=== PATIENT | male | born 1945 | race Asian ===

== ENCOUNTER 2016-12-30 18:10 | Emergency (ER) | payer MEDICARE, BC ==
[~2016-12-30] VITALS: Ht 172.7 cm; Wt 83.5 kg
[2016-12-30 18:20] VITALS: BP 150/82
--- NOTE | 2016-12-30 18:40 | Emergency Room Report ---
History of Present Illness General Chief Complaint: Headache Source: Patient Present Illness HPI 71-year-old male history of hypertension hyperlipidemia and diabetes presenting with headache for 2 days. Patient states that he has had a left-sided headache , sharp, throbbing, constant throughout the day with intermittent exacerbations. Patient states that pain occurred gradually. Patient states that he has also been having subjective fever and chills, has been taking Tylenol with some relief. Patient denies any blurry vision, nausea, vomiting, lateral or posterior neck pain, motor or sensory weakness of any extremity. Patient states that he normally gets headaches, and it is usually in the left lateral region, but states that this pain now is more severe than his usual headaches. Has not seen a neurologist Allergies: Coded Allergies: No Known Allergies (Unverified , 12/30/16) Patient History Past Medical History: see triage record Past Surgical History: none Pertinent Family History: none Reviewed Nursing Documentation: PMH: Agreed, PSxH: Agreed Nursing Documentation-PMH Past Medical History: No History, Except For Hx Hypertension: Yes Hx Diabetes: Yes Review of Systems All Other Systems: negative except mentioned in HPI Physical Exam Vital Signs Date Time Temp Pulse Resp B/P (MAP) Pulse Ox O2 Delivery O2 Flow Rate FiO2 12/30/16 18:14 98.2 101 20 162/80 97 Room Air Sp02 EP Interpretation: reviewed, normal General Appearance: normal inspection, well appearing, no apparent distress, alert, GCS 15, non-toxic, other - Well appearing middle aged male, conversing appropriately, does not appear to be in pain, not in any distress Head: normocephalic, atraumatic Eyes: bilateral eye normal inspection, bilateral eye PERRL, bilateral eye EOMI ENT: normal ENT inspection, normal pharynx, normal voice, moist mucus membranes Neck: normal inspection, full range of motion, supple, no meningismus, no bony tend, other - Full range of motion, no nuchal rigidity Respiratory: normal inspection, lungs clear, normal breath sounds, no respiratory distress, no retraction, no wheezing, speaking full sentences, chest symmetrical Cardiovascular #1: normal inspection, regular rate, rhythm, no edema, normal capillary refill Cardiovascular #2: 2+ radial (R), 2+ radial (L) Gastrointestinal: normal inspection, non tender, soft, non-distended, no guarding Genitourinary: no CVA tenderness Musculoskeletal: normal inspection, back normal, normal range of motion, non- tender Neurologic: normal inspection, alert, oriented x3, responsive, home comfort advisor III-XII nml as tested, motor strength/tone normal, sensory intact, normal gait, speech normal Psychiatric: normal inspection, judgement/insight normal, memory normal Skin: normal inspection, normal color, no rash, warm/dry, well hydrated, normal turgor Medical Decision Making Diagnostic Impression: Primary Impression: Headache ER Course 71-year-old male presenting with headache for 2 days DDX: Migraine versus tension headache versus dehydration versus intracranial bleed Other serious diagnoses on differential such as meningitis/encephalitis, tumor, however patients H&P is more consistent with benign etiology at this time. There are no neurological signs/symptoms/findings on physical exam and patient appears nontoxic. Plan: Patient offered pain medication but states that he has no pain at this time ER course: Patient continues to appear nontoxic, aox3, no neurologic symptoms. no nuchal rigidity. NO WOOD, did not receive pain meds in ED as no pain CT head negative Reexamined patient: no neurolgoical findings states he has had some slight intermittent L sided spasm headaches, however no neck pain. no n/v abd pain lactate elevated - takes metformin given IVF, repeat 1.1 I am not concerned with meningitis as patient very well appearing and asymptomatic Pt sitting up in bed, texting/talkign on phone, not in any distress. Repeat HR has been in the 80s Disposition: Patient instructed to follow up with primary care doctor within 5 days. Patient also instructed to follow up with a neurologist within 1 week. Strict return precautions discussed with patient such as severe/worsening headache, nausea, vomiting, fever chills, neck pain. Patient verbalized understanding. Please note that this Emergency Department Report was dictated using [employer] inspector technology software, occasionally this can lead to erroneous entry secondary to interpretation by the dictation equipment. Laboratory Tests Test 12/30/16 19:00 12/30/16 19:10 White Blood Count 11.7 K/UL (4.8-10.8) H Red Blood Count 5.29 M/UL (4.70-6.10) Hemoglobin 16.6 G/DL (14.2-18.0) Hematocrit 48.3 % (42.0-52.0) Mean Corpuscular Volume 91 FL (80-99) Mean Corpuscular Hemoglobin 31.4 PG (27.0-31.0) H Mean Corpuscular Hemoglobin Concent 34.4 G/DL (32.0-36.0) Red Cell Distribution Width 11.9 % (11.6-14.8) Platelet Count 165 K/UL (150-450) Mean Platelet Volume 7.0 FL (6.5-10.1) Neutrophils (%) (Auto) 79.0 % (45.0-75.0) H Lymphocytes (%) (Auto) 11.4 % (20.0-45.0) L Monocytes (%) (Auto) 8.5 % (1.0-10.0) Eosinophils (%) (Auto) 0.5 % (0.0-3.0) Basophils (%) (Auto) 0.7 % (0.0-2.0) Sodium Level 137 mEQ/L (135-145) Potassium Level 4.0 mEQ/L (3.4-4.9) Chloride Level 96 mEQ/L (98-107) L Carbon Dioxide Level 27 mEQ/L (20-30) Anion Gap 14 (5-15) Blood Urea Nitrogen 19 mg/dL (7-23) Creatinine 1.4 mg/dL (0.7-1.2) H Estimate Glomerular Filtration Rate 50.2 mL/min (>60) Glucose Level 184 mg/dL (74-106) H Lactic Acid Level 2.70 mmol/L (0.66-2.22) H Calcium Level 9.5 mg/dL (8.6-10.2) Total Bilirubin 0.4 mg/dL (0.0-1.2) Aspartate Amino Transferase (AST) 24 U/L (5-40) Alanine Aminotransferase (ALT) 22 U/L (3-41) Alkaline Phosphatase 34 U/L (40-129) L Total Protein 8.0 g/dL (6.6-8.7) Albumin 4.2 g/dL (3.5-5.2) Globulin 3.8 g/dL Albumin/Globulin Ratio 1.1 (1.0-2.7) Urine Color Yellow Urine Appearance Clear Urine pH 6 (4.5-8.0) Urine Specific [place] 1.010 (1.005-1.035) Urine Protein 3+ (NEGATIVE) H Urine Glucose (UA) 4+ (NEGATIVE) H Urine Ketones Negative (NEGATIVE) Urine Occult Blood 1+ (NEGATIVE) H Urine Nitrite Negative (NEGATIVE) Urine Bilirubin Negative (NEGATIVE) Urine Urobilinogen Normal MG/DL (0.0-1.0) Urine Leukocyte Esterase Negative (NEGATIVE) Urine RBC 0-2 /HPF (0 - 0) H Urine WBC 0-2 /HPF (0 - 0) Urine Squamous Epithelial Cells None /LPF (NONE/OCC) Urine Bacteria None /HPF (NONE) EKG Diagnostic Results Rate: normal Rhythm: NSR ST Segments: other - Q waves inf leads, +PVCs ASA given to the pt in ED: No Rhythm Strip Diag. Results EP Interpretation: yes Rate: 96 Rhythm: NSR, no PVC's, no ectopy Chest X-Ray Diagnostic Results Chest X-Ray Diagnostic Results : Chest X-Ray Ordered: Yes # of Views/Limited/Complete: 1 View EP Interpretation: Yes Interpretation: no consolidation, no effusion, no pneumothorax, no acute cardiopulmonary disease Impression: No acute disease Electronically Signed by: Electronically signed by Marisabel Gómez MD CT/MRI/US Diagnostic Results CT/MRI/US Diagnostic Results : Imaging Test Ordered: CT head Impression No acute intracranial process Partial ethmoid opacification Electronically signed by Marisabel Gómez MD Last Vital Signs Date Time Temp Pulse Resp B/P (MAP) Pulse Ox O2 Delivery O2 Flow Rate FiO2 12/30/16 18:14 98.2 101 20 162/80 97 Room Air Disposition: HOME, SELF-CARE Condition: Improved Patient Instructions: General Headache Without Cause Marisabel Gómez M.D. Dec 30, 2016 18:40
[2016-12-30 19:17] LABS: BASOPHILS % (AUTO) 0.7 % (0.0-2.0); EOSINOPHILS % (AUTO) 0.5 % (0.0-3.0); LYMPHOCYTES % (AUTO) 11.4 % (20.0-45.0); MEAN CORPUSCULAR HEMOGLOBIN 31.4 PG (27.0-31.0); MEAN CORPUSCULAR HGB CONC 34.4 G/DL (32.0-36.0); MEAN CORPUSCULAR VOLUME 91 FL (80-99); MONOCYTES % (AUTO) 8.5 % (1.0-10.0); PLATELET COUNT 165 K/UL (150-450); RED BLOOD COUNT 5.29 M/UL (4.70-6.10); RED CELL DISTRIBUTION WIDTH 11.9 % (11.6-14.8); WHITE BLOOD COUNT 11.7 K/UL (4.8-10.8)
[2016-12-30 19:27] LABS: APPEARANCE,URINE CLEAR; KETONES,URINE NEGATIVE (NEGATIVE); LEUKOCYTE ESTERASE ,URINE NEGATIVE (NEGATIVE); NITRITE,URINE NEGATIVE (NEGATIVE); PH,URINE 6 (4.5-8.0); PROTEIN,URINE 3+ (NEGATIVE); UROBILINOGEN,URINE NORMAL MG/DL (0.0-1.0)
[2016-12-30 19:35] LABS: RBC,URINE 0-2 /HPF (0 - 0); WBC,URINE 0-2 /HPF (0 - 0)
[2016-12-30 19:36] LABS: ALBUMIN/GLOBULIN RATIO 1.1 (1.0-2.7); CALCIUM 9.5 mg/dL (8.6-10.2); CREATININE 1.4 mg/dL (0.7-1.2); GLOMERULAR FILTRATION RATE 50.2 mL/min (>60)
[2016-12-30 19:38] LABS: REFLEX LACTIC ACID YES OR NO YES
[2016-12-30 19:40] VITALS: BP 145/79
[2016-12-30 21:30] VITALS: BP 138/79
[2016-12-30 21:40] VITALS: BP 138/79
[2016-12-30] MEDS ORDERED: RAMIPRIL5 MG ORAL (22:21)
[2016-12-30] MEDS ORDERED: NIACIN750 MG ORAL (22:21)
[2016-12-30] MEDS ORDERED: HYDROCHLOROTHIA25 MG ORAL (22:21)
[2016-12-30] MEDS ORDERED: TRULICITY0.75 MG/0. SQ (22:21)
[2016-12-30] MEDS ORDERED: BYSTOLIC2.5 MG ORAL (22:21)
[2016-12-30] MEDS ORDERED: FENOFIBRIC ACI105 MG PO (22:21)
[2016-12-30] MEDS ORDERED: METFORMIN HCL1000 M1 ORAL (22:21)
[2016-12-30] MEDS ORDERED: ZANTAC150 MG ORAL (22:21)
[2016-12-30] MEDS ORDERED: LIVALO4 MG PO (22:21)
--- NOTE | 2016-12-31 08:25 | Diagnostic Imaging Report ---
Indication: PAIN headaches Technique: spiral acquisitions obtained through the brain. Angled axial and coronal 5 x 5 mm slices were reconstructed. No IV contrast utilized. Radiation dose was minimized using automated exposure control Total dose length product 1499 mGycm. CTDIvol(s) 70 mGy Comparison: none FINDINGS: No acute hemorrhage or edema. No mass effect or midline shift. There is age-related enlargement of the ventricles and extra axial CSF spaces. There is periventricular deep white matter ischemic change. Normal youssef-white differentiation. Visualized orbits are unremarkable. There is ethmoid sinus disease. Intact calvarium. IMPRESSION: Chronic and age-related changes. Negative for acute intracranial bleed or mass effect Ethmoid sinus disease This agrees with the preliminary interpretation provided overnight by [facility]. The CT scanner at [facility] is accredited by the [employer] and the scans are performed using protocols designed to limit radiation exposure to as low as reasonably achievable to attain images of sufficient resolution adequate for diagnostic evaluation
--- NOTE | 2016-12-31 10:31 | Diagnostic Imaging Report ---
Indication: PAIN Technique: One view of the chest Comparison: none Findings: Lungs and pleural spaces are clear. Heart size is normal . The aorta is tortuous Impression: No acute process This agrees with the preliminary interpretation provided by the emergency room physician
--- NOTE | 2017-01-02 15:57 | Cardiology Report ---
APPROVED REPORT EKG Measurement Heart [id number] Sinus rhythm with occasional premature ventricular complexes Left posterior fascicular block Abnormal ECG
== END 2016-12-30 21:40 | disposition home or self-care (01) ==
LOC: EMR 18:42
DX: R51 Headache (principal); I10 Essential (primary) hypertension; E11.9 Type 2 diabetes mellitus without complications; J32.2 Chronic ethmoidal sinusitis
CPT/HCPCS: 36415; 70450; 71010; 80053; 81003; 83605; 85025; 87040; 93005; 96360; 99284

== ENCOUNTER 2017-10-08 17:19 | Inpatient (IN) | payer MEDICARE, BC ==
[~2017-10-08] VITALS: Ht 172.7 cm; Wt 67.6 kg
[~2017-10-08 17:19] MED LIST: BYSTOLIC2.5 MG ORAL; FENOFIBRIC ACI105 MG PO; HYDROCHLOROTHIA25 MG ORAL; LIVALO4 MG PO; METFORMIN HCL1000 M1 ORAL; NIACIN750 MG ORAL; RAMIPRIL5 MG ORAL; TRULICITY0.75 MG/0. SQ; ZANTAC150 MG ORAL
[2017-10-08] MEDS ORDERED: LIVALO4 MG PO (17:35)
[2017-10-08] MEDS ORDERED: jardiance PO (17:35)
--- NOTE | 2017-10-08 17:51 | Emergency Room Report ---
History of Present Illness General Chief Complaint: Abdominal Pain Source: Patient Present Illness HPI Patient present with complaints of epigastric discomfort and sensation of bloating in the abdominal area patient reports that this feeling started this afternoon after eating lunch Denies any vomiting did have some nausea however Denies any lower abdominal pain denies any diarrhea denies any chest pain or short of breath Denies any back or flank pain denies any dysuria frequency Allergies: Coded Allergies: No Known Allergies (Unverified , 12/30/16) Patient History Past Medical History: see triage record Pertinent Family History: none Reviewed Nursing Documentation: PMH: Agreed; PSxH: Agreed Nursing Documentation-PMH Hx Hypertension: Yes Hx Diabetes: Yes Review of Systems All Other Systems: negative except mentioned in HPI Physical Exam Vital Signs Date Time Temp Pulse Resp B/P (MAP) Pulse Ox O2 Delivery O2 Flow Rate FiO2 10/08/17 17:28 97.6 90 18 156/86 96 Room Air 97.5 Sp02 EP Interpretation: reviewed, normal General Appearance: no apparent distress Head: normocephalic, atraumatic Eyes: bilateral eye PERRL, bilateral eye EOMI ENT: normal pharynx, no angioedema Neck: full range of motion, supple Respiratory: lungs clear, normal breath sounds Cardiovascular #1: regular rate, rhythm Gastrointestinal: other - Patient is uncomfortable on the epigastric area, no previous surgical scars appropriate bowel sounds Genitourinary: no CVA tenderness Musculoskeletal: normal inspection, back normal Neurologic: alert, oriented x3 Skin: normal color, no rash Lymphatic: no adenopathy Medical Decision Making Diagnostic Impression: Primary Impression: Abdominal pain Additional Impression: Gastroparesis ER Course With the history exam and presentation, multiple differentials considered, including but not limited to appendicitis, gastritis, cholecystitis, diverticulitis Patient received pain medication IV hydration CT imaging reveals distended gallbladder On reevaluation patient has not improved Consideration for gastroparesis is also made and patient requiring admission further GI consultation Labs Test 10/08/17 17:54 White Blood Count 9.6 K/UL (4.8-10.8) Red Blood Count 5.74 M/UL (4.70-6.10) Hemoglobin 17.5 G/DL (14.2-18.0) Hematocrit 50.8 % (42.0-52.0) Mean Corpuscular Volume 88 FL (80-99) Mean Corpuscular Hemoglobin 30.5 PG (27.0-31.0) Mean Corpuscular Hemoglobin Concent 34.4 G/DL (32.0-36.0) Red Cell Distribution Width 11.5 % (11.6-14.8) Platelet Count 195 K/UL (150-450) Mean Platelet Volume 7.0 FL (6.5-10.1) Neutrophils (%) (Auto) 69.1 % (45.0-75.0) Lymphocytes (%) (Auto) 19.7 % (20.0-45.0) Monocytes (%) (Auto) 6.1 % (1.0-10.0) Eosinophils (%) (Auto) 4.2 % (0.0-3.0) Basophils (%) (Auto) 1.0 % (0.0-2.0) Prothrombin Time 10.5 SEC (9.30-11.50) Prothromb Time International Ratio 1.0 (0.9-1.1) Activated Partial Thromboplast Time 30 SEC (23-33) Sodium Level 144 MMOL/L (136-145) Potassium Level 3.0 MMOL/L (3.5-5.1) Chloride Level 103 MMOL/L (98-107) Carbon Dioxide Level 31 MMOL/L (21-32) Anion Gap 10 mmol/L (5-15) Blood Urea Nitrogen 17 mg/dL (7-18) Creatinine 1.3 MG/DL (0.55-1.30) Estimat Glomerular Filtration Rate 54.6 mL/min (>60) Glucose Level 135 MG/DL (74-106) Calcium Level 9.6 MG/DL (8.5-10.1) Total Bilirubin 0.4 MG/DL (0.2-1.0) Aspartate Amino Transf (AST/SGOT) 20 U/L (15-37) Alanine Aminotransferase (ALT/SGPT) 33 U/L (12-78) Alkaline Phosphatase 36 U/L (46-116) Total Creatine Kinase 133 U/L (26-308) Creatine Kinase MB 0.5 NG/ML (0.0-3.6) Creatine Kinase MB Relative Index 0.3 Troponin I 0.001 ng/mL (0.000-0.056) Pro-B-Type Natriuretic Peptide 235 pg/mL (0-125) Total Protein 8.7 G/DL (6.4-8.2) Albumin 4.2 G/DL (3.4-5.0) Globulin 4.5 g/dL Albumin/Globulin Ratio 0.9 (1.0-2.7) Lipase 488 U/L (73-393) Rhythm Strip Diag. Results EP Interpretation: yes Rate: 67 Rhythm: NSR, no PVC's, no ectopy Chest X-Ray Diagnostic Results Chest X-Ray Diagnostic Results : Chest X-Ray Ordered: Yes # of Views/Limited/Complete: 1 View Indication: Chest Pain EP Interpretation: Yes Interpretation: no consolidation, no effusion, no pneumothorax, no acute cardiopulmonary disease Impression: No acute disease Electronically Signed by: Alpa Díaz DO CT/MRI/US Diagnostic Results CT/MRI/US Diagnostic Results : Impression CT abdomen pelvis>: Distended gallbladder no other acute pathology Last Vital Signs Date Time Temp Pulse Resp B/P (MAP) Pulse Ox O2 Delivery O2 Flow Rate FiO2 10/08/17 17:28 97.6 90 18 156/86 96 Room Air 97.5 Status: improved Disposition: ADMITTED INPATIENT Condition: Serious Alpa Díaz DO Oct 08, 2017 17:51
[2017-10-08 18:00] VITALS: BP 159/75
[2017-10-08] MEDS ORDERED: Isovue-300 100ml vial INJ PRN (18:00)
[2017-10-08 18:07] LABS: EOSINOPHILS % (AUTO) 4.2 % (0.0-3.0); HEMATOCRIT 50.8 % (42.0-52.0); HEMOGLOBIN 17.5 G/DL (14.2-18.0); LYMPHOCYTES % (AUTO) 19.7 % (20.0-45.0); MEAN CORPUSCULAR VOLUME 88 FL (80-99); MONOCYTES % (AUTO) 6.1 % (1.0-10.0); NEUTROPHILS % (AUTO) 69.1 % (45.0-75.0); PLATELET COUNT 195 K/UL (150-450); RED BLOOD COUNT 5.74 M/UL (4.70-6.10); RED CELL DISTRIBUTION WIDTH 11.5 % (11.6-14.8); WHITE BLOOD COUNT 9.6 K/UL (4.8-10.8)
[2017-10-08 18:23] LABS: ANION GAP 10 mmol/L (5-15); BLOOD UREA NITROGEN 17 mg/dL (7-18); CALCIUM 9.6 MG/DL (8.5-10.1); CARBON DIOXIDE 31 MMOL/L (21-32); CHLORIDE 103 MMOL/L (98-107); CREATININE 1.3 MG/DL (0.55-1.30); SODIUM 144 MMOL/L (136-145)
[2017-10-08 18:36] LABS: ALANINE AMINOTRANSFERASE 33 U/L (12-78); ALBUMIN 4.2 G/DL (3.4-5.0); ALBUMIN/GLOBULIN RATIO 0.9 (1.0-2.7); ALKALINE PHOSPHATASE 36 U/L (46-116); ASPARTATE AMINO TRANSFERASE 20 U/L (15-37); BILIRUBIN,TOTAL 0.4 MG/DL (0.2-1.0); CKMB 0.5 NG/ML (0.0-3.6); CREATINE KINASE 133 U/L (26-308)
--- NOTE | 2017-10-08 18:59 | Diagnostic Imaging Report ---
EXAM: XR Chest, 1 View CLINICAL HISTORY: CP TECHNIQUE: Frontal view of the chest. COMPARISON: Chest x-ray 12/30/16 FINDINGS: Lungs: Reduced lung volumes with left basilar atelectasis/pneumonitis. Pleural space: Unremarkable. No pneumothorax. Heart: Unremarkable. No cardiomegaly. Mediastinum: Unremarkable. Bones/joints: No acute fracture. IMPRESSION: Reduced lung volumes with mild left basilar atelectasis/pneumonitis.
[2017-10-08 19:30] VITALS: BP_SYST 148; BP_SYST 153; BP_DIAS 72; BP_DIAS 76
--- NOTE | 2017-10-08 19:52 | Diagnostic Imaging Report ---
EXAM: CT Abdomen and Pelvis With Intravenous Contrast CLINICAL HISTORY: PAIN TECHNIQUE: Axial computed tomography images of the abdomen and pelvis with intravenous contrast. CTDI is 0.15 + 13.21 mGy and DLP is 699 mGy-cm. One or more of the following dose reduction techniques were used: automated exposure control, adjustment of the mA and/or kV according to patient size, use of iterative reconstruction technique. COMPARISON: Mild fatty liver. FINDINGS: Lung bases: Unremarkable. ABDOMEN: Liver: Unremarkable. Gallbladder and bile ducts: Gallbladder distention. No radiodense gallstones. Pancreas: Unremarkable. Spleen: Unremarkable. Adrenals: Subcentimeter nodules related to the left adrenal gland. Kidneys and ureters: Sub centimeter left renal cyst. Stomach and bowel: Gastric distention. No bowel obstruction. PELVIS: Appendix: Unremarkable appendix. Bladder: Unremarkable. Reproductive: Large heterogeneous prostate. ABDOMEN and PELVIS: Intraperitoneal space: Unremarkable. Bones/joints: No acute fracture. Soft tissues: Small fat containing left inguinal hernia. Vasculature: Unremarkable. No abdominal aortic aneurysm. Lymph nodes: No enlarged lymph nodes. IMPRESSION: Unremarkable appendix.
[2017-10-08] MEDS ORDERED: Hydromorphone 0.5mg/0.5ml inj IVP ONE (20:00)
[2017-10-08] MEDS ORDERED: Sodium Chloride 500ML 500 ML IV ONE (20:00)
[2017-10-08 20:30] VITALS: BP 153/73
[2017-10-08 21:30] VITALS: BP 151/73
[2017-10-08] MEDS ORDERED: Hydromorphone 0.5mg/0.5ml inj IVP PRN (23:45)
[2017-10-08] MEDS ORDERED: D5NS 1,000 ML IV SCH (23:45)
[2017-10-08] MEDS ORDERED: Metoclopramide 10mg/2ml Inj IVP PRN (23:45)
[2017-10-09] VITALS: BP 150/82
[2017-10-09] MEDS ORDERED: Hydromorphone 0.5mg/0.5ml inj IVP PRN ×3 (00:15→07:30)
[2017-10-09] MEDS ORDERED: Hydromorphone 0.5mg/0.5ml inj SUBQ PRN (00:15)
[2017-10-09] MEDS ORDERED: lovaza PO (01:13)
[2017-10-09] MEDS ORDERED: NASONEX17 GM NASAL (01:13)
[2017-10-09] MEDS: Zoysn 3.37gm in NS 100ML IVPB SCH ×3 (03:23→17:30)
[2017-10-09 04:00] VITALS: BP 126/66
[2017-10-09 04:03] LABS: APPEARANCE,URINE CLEAR; BILIRUBIN, URINE NEGATIVE (NEGATIVE); GLUCOSE, URINE (UA) 4+ (NEGATIVE); KETONES,URINE 1+ (NEGATIVE); LEUKOCYTE ESTERASE ,URINE NEGATIVE (NEGATIVE); NITRITE,URINE NEGATIVE (NEGATIVE); PH,URINE 7 (4.5-8.0); PROTEIN,URINE 3+ (NEGATIVE); UROBILINOGEN,URINE NORMAL MG/DL (0.0-1.0)
[2017-10-09 04:06] LABS: COLOR,URINE YELLOW
[2017-10-09] MEDS ORDERED: Piperacillin/Tazobactam 2.25 GM in D5W 55 ML IVPB SCH (06:00)
[2017-10-09] MEDS: NovoLOG Insulin Flexpen SUBQ SCH ×4 (06:07→20:42)
[2017-10-09 07:13] LABS: BASOPHILS % (AUTO) 0.4 % (0.0-2.0); HEMATOCRIT 47.1 % (42.0-52.0); HEMOGLOBIN 16.1 G/DL (14.2-18.0); LYMPHOCYTES % (AUTO) 7.8 % (20.0-45.0); MEAN CORPUSCULAR VOLUME 88 FL (80-99); MONOCYTES % (AUTO) 7.6 % (1.0-10.0); NEUTROPHILS % (AUTO) 84.2 % (45.0-75.0); PLATELET COUNT 186 K/UL (150-450); RED BLOOD COUNT 5.34 M/UL (4.70-6.10); RED CELL DISTRIBUTION WIDTH 11.6 % (11.6-14.8); WHITE BLOOD COUNT 17.1 K/UL (4.8-10.8)
[2017-10-09 07:20] LABS: ALANINE AMINOTRANSFERASE 30 U/L (12-78); ALBUMIN 3.3 G/DL (3.4-5.0); ALBUMIN/GLOBULIN RATIO 0.9 (1.0-2.7); ALKALINE PHOSPHATASE 27 U/L (46-116); ANION GAP 8 mmol/L (5-15); ASPARTATE AMINO TRANSFERASE 19 U/L (15-37); BILIRUBIN,DIRECT 0.2 MG/DL (0.0-0.3); BILIRUBIN,TOTAL 0.6 MG/DL (0.2-1.0); BLOOD UREA NITROGEN 17 mg/dL (7-18); CALCIUM 8.9 MG/DL (8.5-10.1); CARBON DIOXIDE 26 MMOL/L (21-32); CHLORIDE 108 MMOL/L (98-107); CREATININE 1.2 MG/DL (0.55-1.30); POTASSIUM 3.9 MMOL/L (3.5-5.1); SODIUM 142 MMOL/L (136-145)
[2017-10-09 08:00] VITALS: BP 118/64
[2017-10-09] MEDS: Pantoprazole Inj IVP SCH (08:08)
[2017-10-09] MEDS: Enoxaparin 40mg Inj SUBQ SCH (08:09)
--- NOTE | 2017-10-09 09:40 | History and Physical ---
History of Present Illness General Date patient seen: Oct 09, 2017 Time patient seen: 09:40 Reason for Hospitalization: Abdominal Pain Present Illness HPI 72yo male with pmh of HTN, DM2, HLD who presents with abd pain. Pt states abd pain started yesterday. He describes epigastric RUQ abd pain described as cramping 8/10 w/ some radiation to mid back associated with bloating, nausea and emesis. Pt states had a tuna sandwich earlier that day which was left over from day prior. It had been refrigerated. No hematemesis. Has never had this before. Denies f/c, chest pain, SOB, d/c, cough. Has a normal BM yesterday. No trauma or recent travel. In ED, pt had CT a/p which showed gastric distention and gallbladder distention. Pt given IVFs, pain and nausea meds. Overnight pt had fever to 100.4 and WBC elevated to 17K. Pt notes improvement in abd pain. Allergies: Coded Allergies: No Known Allergies (Unverified , 12/30/16) Medication History Scheduled Dulaglutide (Trulicity), 0.75 MG SQ QWEEK, (Reported) Fenofibric Acid (Fenofibric Acid), 135 MG PO DAILY, (Reported) Hydrochlorothiazide* (Hydrochlorothiazide*), 25 MG ORAL DAILY, (Reported) Metformin Hcl* (Metformin Hcl*), 1,000 MG ORAL BID, (Reported) Mometasone Furoate (Nasonex), 2 SPRAYS NASAL DAILY, (Reported) Nebivolol Hcl* (Bystolic*), 5 MG ORAL DAILY, (Reported) Niaciner* (Niacin Er*), 500 MG ORAL BEDTIME, (Reported) Pitavastatin Calcium (Livalo), 4 MG PO BEDTIME, (Reported) Ramipril* (Ramipril*), 10 MG ORAL DAILY, (Reported) [jardiance], 25 MG PO DAILY, (Reported) [lovaza], 1 GM PO BID, (Reported) Scheduled PRN Ranitidine Hcl* (Zantac*), 150 MG ORAL DAILY PRN for nausea, (Reported) Patient History History Provided By: Patient, Medical Record Healthcare decision maker Resuscitation status Full Code Advanced Directive on File Past Medical/Surgical History Past Medical/Surgical History: (1) HTN (hypertension) (2) HLD (hyperlipidemia) (3) DM2 (diabetes mellitus, type 2) Family History Family History: Patient reports no known family medical history. Social History Social History: (1) lives on own with dog Review of Systems Constitutional: Reports: weakness Eye: Reports: no symptoms ENT: Reports: no symptoms Respiratory: Reports: no symptoms Cardiovascular: Reports: no symptoms Gastrointestinal: Reports: abdominal pain, nausea, vomiting Genitourinary: Reports: no symptoms Musculoskeletal: Reports: no symptoms Skin: Reports: no symptoms Psychiatric: Reports: no symptoms Neurological: Reports: no symptoms Endocrine: Reports: no symptoms Hematologic/Lymphatic: Reports: no symptoms Physical Exam Physical Exam Narrative General: alert, cooperative, no distress, appears stated age Head: normocephalic, without obvious abnormality, atraumatic Eyes: conjunctivae/corneas clear. PERRL, EOM's intact Throat: lips, mucosa, and tongue normal. MMM Neck: supple, symmetrical, trachea midline, and no JVD Lungs: clear to auscultation bilaterally Heart: regular rate and rhythm, S1, S2 normal, no murmur, click, rub or gallop Abdomen: soft, +TTP of RUQ and epigastrium, bowel sounds normal; no masses or organomegaly Extremities: extremities normal, atraumatic, no cyanosis or edema Pulses: 2+ and symmetric Skin: skin color, texture, turgor normal; no rashes or lesions Neurologic: grossly normal, no focal deficits Last 24 Hour Vital Signs Date Time Temp Pulse Resp B/P (MAP) Pulse Ox O2 Delivery O2 Flow Rate FiO2 10/09/17 09:13 100.4 10/09/17 08:14 100.4 10/09/17 08:00 99.3 98 20 118/64 94 99.3 10/09/17 04:00 100.4 109 19 126/66 94 Room Air 100.4 10/09/17 00:00 98.7 94 19 150/82 94 98.7 10/08/17 22:00 97.6 94 16 151/73 98 Room Air 1.0 97.6 10/08/17 21:30 97.6 94 16 151/73 98 Room Air 97.6 10/08/17 20:43 97.6 10/08/17 20:30 98.0 97 16 153/73 98 Nasal Cannula 1.0 98.0 10/08/17 20:13 97.6 10/08/17 19:30 97.5 99 16 153/76 96 Room Air 97.5 10/08/17 18:00 91 16 159/75 99 Room Air 10/08/17 17:28 97.6 90 18 156/86 96 Room Air 97.5 Intake and Output 10/08/17 10/09/17 19:00 07:00 Intake Total 487.5 ml Output Total 80 ml 1600 ml Balance -80 ml -1112.5 ml Intake IV Total 487.5 ml Output Urine Total 80 ml 1400 ml Emesis 200 ml # Voids 1 2 Laboratory Tests Test 10/08/17 17:54 10/09/17 03:10 10/09/17 06:35 White Blood Count 9.6 K/UL (4.8-10.8) 17.1 K/UL (4.8-10.8) #H Red Blood Count 5.74 M/UL (4.70-6.10) 5.34 M/UL (4.70-6.10) Hemoglobin 17.5 G/DL (14.2-18.0) 16.1 G/DL (14.2-18.0) Hematocrit 50.8 % (42.0-52.0) 47.1 % (42.0-52.0) Mean Corpuscular Volume 88 FL (80-99) 88 FL (80-99) Mean Corpuscular Hemoglobin 30.5 PG (27.0-31.0) 30.2 PG (27.0-31.0) Mean Corpuscular Hemoglobin Concent 34.4 G/DL (32.0-36.0) 34.2 G/DL (32.0-36.0) Red Cell Distribution Width 11.5 % (11.6-14.8) L 11.6 % (11.6-14.8) Platelet Count 195 K/UL (150-450) 186 K/UL (150-450) Mean Platelet Volume 7.0 FL (6.5-10.1) 7.3 FL (6.5-10.1) Neutrophils (%) (Auto) 69.1 % (45.0-75.0) 84.2 % (45.0-75.0) H Lymphocytes (%) (Auto) 19.7 % (20.0-45.0) L 7.8 % (20.0-45.0) L Monocytes (%) (Auto) 6.1 % (1.0-10.0) 7.6 % (1.0-10.0) Eosinophils (%) (Auto) 4.2 % (0.0-3.0) H 0.0 % (0.0-3.0) Basophils (%) (Auto) 1.0 % (0.0-2.0) 0.4 % (0.0-2.0) Prothrombin Time 10.5 SEC (9.30-11.50) Prothromb Time International Ratio 1.0 (0.9-1.1) Activated Partial Thromboplast Time 30 SEC (23-33) Sodium Level 144 MMOL/L (136-145) 142 MMOL/L (136-145) Potassium Level 3.0 MMOL/L (3.5-5.1) L 3.9 MMOL/L (3.5-5.1) Chloride Level 103 MMOL/L (98-107) 108 MMOL/L (98-107) H Carbon Dioxide Level 31 MMOL/L (21-32) 26 MMOL/L (21-32) Anion Gap 10 mmol/L (5-15) 8 mmol/L (5-15) Blood Urea Nitrogen 17 mg/dL (7-18) 17 mg/dL (7-18) Creatinine 1.3 MG/DL (0.55-1.30) 1.2 MG/DL (0.55-1.30) Estimat Glomerular Filtration Rate 54.6 mL/min (>60) 59.9 mL/min (>60) Glucose Level 135 MG/DL (74-106) H 129 MG/DL (74-106) H Calcium Level 9.6 MG/DL (8.5-10.1) 8.9 MG/DL (8.5-10.1) Total Bilirubin 0.4 MG/DL (0.2-1.0) 0.6 MG/DL (0.2-1.0) Aspartate Amino Transf (AST/SGOT) 20 U/L (15-37) 19 U/L (15-37) Alanine Aminotransferase (ALT/SGPT) 33 U/L (12-78) 30 U/L (12-78) Alkaline Phosphatase 36 U/L (46-116) L 27 U/L (46-116) L Total Creatine Kinase 133 U/L (26-308) Creatine Kinase MB 0.5 NG/ML (0.0-3.6) Creatine Kinase MB Relative Index 0.3 Troponin I 0.001 ng/mL (0.000-0.056) Pro-B-Type Natriuretic Peptide 235 pg/mL (0-125) H Total Protein 8.7 G/DL (6.4-8.2) H 7.0 G/DL (6.4-8.2) Albumin 4.2 G/DL (3.4-5.0) 3.3 G/DL (3.4-5.0) L Globulin 4.5 g/dL 3.7 g/dL Albumin/Globulin Ratio 0.9 (1.0-2.7) L 0.9 (1.0-2.7) L Lipase 488 U/L (73-393) H 273 U/L (73-393) Urine Color Yellow Urine Appearance Clear Urine pH 7 (4.5-8.0) Urine Specific [place] 1.010 (1.005-1.035) Urine Protein 3+ (NEGATIVE) H Urine Glucose (UA) 4+ (NEGATIVE) H Urine Ketones 1+ (NEGATIVE) H Urine Occult Blood Negative (NEGATIVE) Urine Nitrite Negative (NEGATIVE) Urine Bilirubin Negative (NEGATIVE) Urine Urobilinogen Normal MG/DL (0.0-1.0) Urine Leukocyte Esterase Negative (NEGATIVE) Urine RBC 0-2 /HPF (0 - 0) H Urine WBC 2-4 /HPF (0 - 0) Urine Squamous Epithelial Cells Occasional /LPF Urine Transitional Epithelial Cells /LPF (NONE) Urine Amorphous Sediment Few /LPF (NONE) H Urine Bacteria Few /HPF (NONE) Magnesium Level 2.4 MG/DL (1.8-2.4) Direct Bilirubin 0.2 MG/DL (0.0-0.3) Height (Feet): 5 Height (Inches): 8.00 Weight (Pounds): 149 Medications Current Medications Medications (Trade) Dose Ordered Sig/Meryl Route PRN Reason Start Time Stop Time Status Last Admin Dose Admin Acetaminophen (Tylenol) 650 mg Q6H PRN ORAL Mild Pain/Temp > 100.5 10/09/17 07:30 11/08/17 07:29 10/09/17 08:14 Dextrose (Dextrose 50%) 25 ml STAT PRN IV Hypoglycemia 10/08/17 23:45 11/07/17 23:44 Dextrose (Dextrose 50%) 50 ml STAT PRN IV Hypoglycemia 10/08/17 23:45 11/07/17 23:44 Dextrose/Sodium Chloride 1,000 ml @ 75 mls/hr [id number] IV 10/08/17 23:45 11/07/17 23:44 10/09/17 00:51 Enoxaparin Sodium (Lovenox) 40 mg DAILY SUBQ 10/09/17 09:00 11/08/17 08:59 10/09/17 08:09 Hydromorphone HCl (Dilaudid) 0.5 mg Q4H PRN IVP PAIN 4-10 10/09/17 07:30 10/16/17 07:29 Insulin Aspart (NovoLOG) BEFORE MEALS AND HS SUBQ 10/09/17 06:30 11/08/17 06:29 10/09/17 06:07 Iopamidol (Isovue-300 100ml) 100 ml NOW PRN INJ Radiology Procedure 10/08/17 18:00 10/10/17 17:59 Metoclopramide HCl (Reglan) 5 mg QID ORAL 10/09/17 13:00 11/08/17 12:59 Metoclopramide HCl (Reglan) 10 mg Q6H PRN IVP Nausea & Vomiting 10/08/17 23:45 11/07/17 23:44 Ondansetron HCl (Zofran) 4 mg Q4H PRN IVP Nausea & Vomiting 10/08/17 23:45 11/07/17 23:44 Pantoprazole (Protonix) 40 mg DAILY IVP 10/09/17 09:00 11/08/17 08:59 10/09/17 08:08 Piperacillin Sod/ Tazobactam Sod 3.375 gm/Sodium Chloride 110 ml @ 27.5 mls/hr Q8H IVPB 10/09/17 02:00 10/16/17 01:59 10/09/17 03:23 Assessment/Plan Problem List: (1) Abdominal pain ICD Codes: R10.9 - Unspecified abdominal pain SNOMED: 45570394 Qualifiers: Qualified Codes: R10.13 - Epigastric pain (2) Nausea & vomiting ICD Codes: R11.2 - Nausea with vomiting, unspecified SNOMED: 82555187 (3) Hypokalemia ICD Codes: E87.6 - Hypokalemia SNOMED: 92576469 (4) SIRS (systemic inflammatory response syndrome) Assessment & Plan: concern for sepsis w/ GI source ICD Codes: R65.10 - Systemic inflammatory response syndrome (SIRS) of non- infectious origin without acute organ dysfunction SNOMED: 081181834 (5) DM2 (diabetes mellitus, type 2) ICD Codes: E11.9 - Type 2 diabetes mellitus without complications SNOMED: 95199711 (6) HTN (hypertension) ICD Codes: I10 - Essential (primary) hypertension SNOMED: 95212490 (7) HLD (hyperlipidemia) ICD Codes: E78.5 - Hyperlipidemia, unspecified SNOMED: 30508269 Status: stable Assessment/Plan Abd pain possibly 2/2 gallbladder pathology such as biliary colic/cholelithiasis /cholecystitis vs pancreatitis (lipase was elevated on admit) vs diabetic gastroparesis vs gastritis/duodenitis vs PUD vs food poisoning Admit inpt GI and surgery consulted Check U/S abd Serial abd exams NPO for now mIVFs w KCl Trend CBC and BMP PPI Pain control Nausea control ID consulted Empiric zosyn for now F/u blood cultures Hold PO diabetic meds SSI Check Hgb A1C BPs currently wnl so will hold home BP meds in setting of possible sepsis. Resume as tolerated Supportive care DVT Prophylaxis: SCD, lovenox Code Status: Full Hospital Classification Declaration: Based on this initial evaluation, and depending on the patient's clinical course, I anticipate that this patient will require hospitalization for 2-3 days for abd pain and close respiratory/ hemodynamic monitoring. Disposition: Once the patient is stable to leave the hospital, I anticipate the patient will likely be discharged to the following environment: home with HH vs SNF I spent 72 minutes on this patient's case, and >50% was dedicated to counseling and/or care coordination. Discussed with patient/family, nursing staff, SW/CM, GI, surgery, ID regarding clinical status, treatment course, and disposition planning. Time of note may not reflect time of encounter. Vikas Moeller M.D. Oct 09, 2017 09:40
--- NOTE | 2017-10-09 10:45 | Consultation ---
DATE OF CONSULTATION: 10/09/2017 GASTROENTEROLOGY CONSULTATION CONSULTING PHYSICIAN: Morris Fontana M.D. CHIEF COMPLAINT: Abdominal pain. HISTORY OF PRESENT ILLNESS: This is a very pleasant 72-year-old male with past medical history of hypertension, diabetes, high cholesterol, who was admitted to the hospital with one day of abdominal pain, epigastric in area, associated with vomiting. No hematemesis. No melena. No hematochezia. According to the patient, the pain is almost gone this morning. He had a CT of the abdomen and pelvis in the ER, which was nonspecific except for gastric distention, gallbladder distention, and enlarged prostate. The patient according to him had a colonoscopy done about 4 years ago and had two polyps. Denies any melena or hematochezia. PAST MEDICAL HISTORY: 1. Hypertension. 2. Diabetes. 3. Hypercholesterolemia. ALLERGIES: No known drug allergies. MEDICATIONS: Please see medication reconciliation list. SOCIAL HISTORY: The patient denies any tobacco, alcohol, or drug abuse. PAST SURGICAL HISTORY: None. FAMILY HISTORY: Mother had some kind of brain cancer or sinus cancer, he is not sure. REVIEW OF SYSTEMS: Ten-point review of systems was performed and pertinent positives as dictated in HPI. PHYSICAL EXAMINATION: VITAL SIGNS: Temperature is 100.4, pulse is 98, respirations 20, blood pressure is 118/64. HEENT: Normocephalic and atraumatic. Sclerae anicteric. NECK: Supple. No evidence of obvious lymphadenopathy. CARDIOVASCULAR: Regular rhythm. Plus S1 and S2. No obvious murmur. LUNGS: Clear to auscultation bilaterally. ABDOMEN: Positive bowel sounds. Soft. Minimal tenderness to palpation in the epigastric area. No rebound. No guarding. No peritoneal sign. EXTREMITIES: No cyanosis, no clubbing, no edema. LABORATORY DATA: White count 17,000, hemoglobin 16, hematocrit 47, platelet count 186,000. Sodium 142, potassium 3.9, BUN 17, creatinine 1.2, glucose 129. ASSESSMENT AND PLAN: This is a 72-year-old male with epigastric abdominal pain. The etiology is unknown. There is evidence of gastric distention on the CT scan. There is a possibility this might be due to diabetes-induced gastroparesis given the gastric distention and vomiting, but the patient also had evidence of elevated white count this morning with low-grade fever. We will recommend the patient to stay and get an endoscopy for tomorrow, but the patient is very hesitant. He wants to go home. He has a dog at home, so our plan will be if he agrees to stay, we will schedule him for endoscopy tomorrow. Meanwhile, the patient to be on Protonix and Reglan. If the patient refuses, then he has to sign AMA and we will go from there. Morris Fontana M.D. DR: Hal JOB#: [id number] CC:
[2017-10-09] MEDS ORDERED: Tubing IV Secondary IV ONE (10:57)
[2017-10-09] MEDS ORDERED: D5NS 1000ml IV ONE (10:57)
[2017-10-09 11:55] VITALS: BP 115/66
[2017-10-09] MEDS: D5 1/2NS w/KCl 20mEq 1,000 ML IV SCH (12:41)
--- NOTE | 2017-10-09 14:32 | Consultation ---
History of Present Illness General Date patient seen: Oct 09, 2017 Chief Complaint: Abdominal Pain Reason for Consultation: abdominal pain Present Illness HPI 72 year old male presented to ED with complaints of abdominal pain. as per patient, he was in his normal state of health until yesterday when he began to note some epigastric/RUQ abdominal pain, bloating, nausea, and emesis. came to ED for evaluation given severity of symptoms. describes pain as cramping 8/10 with some radiation to mid back. one episodes of non bloody emesis. no prior episodes of similar events. no fever or chills. in ED CT scan demonstrated gastric distention and gallbladder distention. surgery called to evaluate. patient admitted. todays labs demonstrated leukocytosis of 17k and low grade fevers. patient seen, chart reviewed, patient examined. states pain improving since admission. currently mild nausea only. Allergies: Coded Allergies: No Known Allergies (Unverified , 12/30/16) Medication History Scheduled Dulaglutide (Trulicity), 0.75 MG SQ QWEEK, (Reported) Fenofibric Acid (Fenofibric Acid), 135 MG PO DAILY, (Reported) Hydrochlorothiazide* (Hydrochlorothiazide*), 25 MG ORAL DAILY, (Reported) Metformin Hcl* (Metformin Hcl*), 1,000 MG ORAL BID, (Reported) Mometasone Furoate (Nasonex), 2 SPRAYS NASAL DAILY, (Reported) Nebivolol Hcl* (Bystolic*), 5 MG ORAL DAILY, (Reported) Niaciner* (Niacin Er*), 500 MG ORAL BEDTIME, (Reported) Pitavastatin Calcium (Livalo), 4 MG PO BEDTIME, (Reported) Ramipril* (Ramipril*), 10 MG ORAL DAILY, (Reported) [jardiance], 25 MG PO DAILY, (Reported) [lovaza], 1 GM PO BID, (Reported) Scheduled PRN Ranitidine Hcl* (Zantac*), 150 MG ORAL DAILY PRN for nausea, (Reported) Patient History History Provided By: Patient, Medical Record, PMD Healthcare decision maker Resuscitation status Full Code Advanced Directive on File Past Medical/Surgical History Past Medical/Surgical History: (1) Gastroparesis (2) Abdominal pain Review of Systems Constitutional: Denies: no symptoms, see HPI, chills, sweats, fever, malaise, weakness, other Eye: Denies: no symptoms, see HPI, eye pain, blurred vision, tearing, double vision, nose pain, nose congestion, acuity changes, discharge, other ENT: Denies: no symptoms, see HPI, ear pain, ear discharge, nose pain, nose congestion, throat pain, throat swelling, mouth pain, hearing loss, nasal discharge, other Respiratory: Denies: no symptoms, see HPI, cough, orthopnea, shortness of breath, stridor, wheezing, SILVA, sputum, other Gastrointestinal: Reports: abdominal pain, nausea, vomiting Genitourinary: Denies: no symptoms, see HPI, discharge, dysuria, frequency, hematuria, pain, retention, incontinence, urgency, vag bleed/dc, other Musculoskeletal: Denies: no symptoms, see HPI, back pain, gout, joint pain, joint swelling, muscle pain, muscle stiffness, other Skin: Denies: no symptoms, see HPI, rash, change in color, change in hair/nails , dryness, lesions, other Psychiatric: Denies: no symptoms, see HPI, prior hx, anxiety, depressed feelings, emotional problems, SI, HI, hallucinations, other Neurological: Denies: no symptoms, see HPI, headache, numbness, paresthesia, seizure, tingling, tremors, focal weakness, syncope, dizziness, other Endocrine: Denies: no symptoms, see HPI, excessive sweating, flushing, intolerance to temperature, increased thirst, increased urine, unexplained weight loss, other Hematologic/Lymphatic: Denies: no symptoms, see HPI, anemia, blood clots, easy bleeding, easy bruising, swollen glands, diathesis, other Physical Exam General Appearance: WD/WN, no apparent distress Lines, tubes and drains: peripheral HEENT: normocephalic, atraumatic, PERRL Neck: supple, normal inspection Respiratory/Chest: lungs clear, normal breath sounds, no respiratory distress, no accessory muscle use Cardiovascular/Chest: normal peripheral pulses, normal rate Abdomen: normal bowel sounds, non tender, soft, no organomegaly, no mass Extremities: normal range of motion, non-tender, normal inspection Skin Exam: normal pigmentation Neurologic: alert, oriented x 3, responsive Last 24 Hour Vital Signs Date Time Temp Pulse Resp B/P (MAP) Pulse Ox O2 Delivery O2 Flow Rate FiO2 10/09/17 11:55 97.9 88 20 115/66 96 97.9 10/09/17 09:13 100.4 10/09/17 08:14 100.4 10/09/17 08:00 99.3 98 20 118/64 94 99.3 10/09/17 04:00 100.4 109 19 126/66 94 Room Air 100.4 10/09/17 00:00 98.7 94 19 150/82 94 98.7 10/08/17 22:00 97.6 94 16 151/73 98 Room Air 1.0 97.6 10/08/17 21:30 97.6 94 16 151/73 98 Room Air 97.6 10/08/17 20:43 97.6 10/08/17 20:30 98.0 97 16 153/73 98 Nasal Cannula 1.0 98.0 10/08/17 20:13 97.6 10/08/17 19:30 97.5 99 16 153/76 96 Room Air 97.5 10/08/17 18:00 91 16 159/75 99 Room Air 10/08/17 17:28 97.6 90 18 156/86 96 Room Air 97.5 Intake and Output 10/08/17 10/09/17 19:00 07:00 Intake Total 487.5 ml Output Total 80 ml 1600 ml Balance -80 ml -1112.5 ml Intake IV Total 487.5 ml Output Urine Total 80 ml 1400 ml Emesis 200 ml # Voids 1 2 Laboratory Tests Test 10/08/17 17:54 10/09/17 03:10 10/09/17 06:35 10/09/17 10:35 White Blood Count 9.6 K/UL (4.8-10.8) 17.1 K/UL (4.8-10.8) #H Red Blood Count 5.74 M/UL (4.70-6.10) 5.34 M/UL (4.70-6.10) Hemoglobin 17.5 G/DL (14.2-18.0) 16.1 G/DL (14.2-18.0) Hematocrit 50.8 % (42.0-52.0) 47.1 % (42.0-52.0) Mean Corpuscular Volume 88 FL (80-99) 88 FL (80-99) Mean Corpuscular Hemoglobin 30.5 PG (27.0-31.0) 30.2 PG (27.0-31.0) Mean Corpuscular Hemoglobin Concent 34.4 G/DL (32.0-36.0) 34.2 G/DL (32.0-36.0) Red Cell Distribution Width 11.5 % (11.6-14.8) L 11.6 % (11.6-14.8) Platelet Count 195 K/UL (150-450) 186 K/UL (150-450) Mean Platelet Volume 7.0 FL (6.5-10.1) 7.3 FL (6.5-10.1) Neutrophils (%) (Auto) 69.1 % (45.0-75.0) 84.2 % (45.0-75.0) H Lymphocytes (%) (Auto) 19.7 % (20.0-45.0) L 7.8 % (20.0-45.0) L Monocytes (%) (Auto) 6.1 % (1.0-10.0) 7.6 % (1.0-10.0) Eosinophils (%) (Auto) 4.2 % (0.0-3.0) H 0.0 % (0.0-3.0) Basophils (%) (Auto) 1.0 % (0.0-2.0) 0.4 % (0.0-2.0) Prothrombin Time 10.5 SEC (9.30-11.50) Prothromb Time International Ratio 1.0 (0.9-1.1) Activated Partial Thromboplast Time 30 SEC (23-33) Sodium Level 144 MMOL/L (136-145) 142 MMOL/L (136-145) Potassium Level 3.0 MMOL/L (3.5-5.1) L 3.9 MMOL/L (3.5-5.1) Chloride Level 103 MMOL/L (98-107) 108 MMOL/L (98-107) H Carbon Dioxide Level 31 MMOL/L (21-32) 26 MMOL/L (21-32) Anion Gap 10 mmol/L (5-15) 8 mmol/L (5-15) Blood Urea Nitrogen 17 mg/dL (7-18) 17 mg/dL (7-18) Creatinine 1.3 MG/DL (0.55-1.30) 1.2 MG/DL (0.55-1.30) Estimat Glomerular Filtration Rate 54.6 mL/min (>60) 59.9 mL/min (>60) Glucose Level 135 MG/DL (74-106) H 129 MG/DL (74-106) H Calcium Level 9.6 MG/DL (8.5-10.1) 8.9 MG/DL (8.5-10.1) Total Bilirubin 0.4 MG/DL (0.2-1.0) 0.6 MG/DL (0.2-1.0) Aspartate Amino Transf (AST/SGOT) 20 U/L (15-37) 19 U/L (15-37) Alanine Aminotransferase (ALT/SGPT) 33 U/L (12-78) 30 U/L (12-78) Alkaline Phosphatase 36 U/L (46-116) L 27 U/L (46-116) L Total Creatine Kinase 133 U/L (26-308) Creatine Kinase MB 0.5 NG/ML (0.0-3.6) Creatine Kinase MB Relative Index 0.3 Troponin I 0.001 ng/mL (0.000-0.056) Pro-B-Type Natriuretic Peptide 235 pg/mL (0-125) H Total Protein 8.7 G/DL (6.4-8.2) H 7.0 G/DL (6.4-8.2) Albumin 4.2 G/DL (3.4-5.0) 3.3 G/DL (3.4-5.0) L Globulin 4.5 g/dL 3.7 g/dL Albumin/Globulin Ratio 0.9 (1.0-2.7) L 0.9 (1.0-2.7) L Lipase 488 U/L (73-393) H 273 U/L (73-393) Urine Color Yellow Urine Appearance Clear Urine pH 7 (4.5-8.0) Urine Specific [place] 1.010 (1.005-1.035) Urine Protein 3+ (NEGATIVE) H Urine Glucose (UA) 4+ (NEGATIVE) H Urine Ketones 1+ (NEGATIVE) H Urine Occult Blood Negative (NEGATIVE) Urine Nitrite Negative (NEGATIVE) Urine Bilirubin Negative (NEGATIVE) Urine Urobilinogen Normal MG/DL (0.0-1.0) Urine Leukocyte Esterase Negative (NEGATIVE) Urine RBC 0-2 /HPF (0 - 0) H Urine WBC 2-4 /HPF (0 - 0) Urine Squamous Epithelial Cells Occasional /LPF Urine Transitional Epithelial Cells /LPF (NONE) Urine Amorphous Sediment Few /LPF (NONE) H Urine Bacteria Few /HPF (NONE) Magnesium Level 2.4 MG/DL (1.8-2.4) Direct Bilirubin 0.2 MG/DL (0.0-0.3) Lactic Acid Level 1.60 mmol/L (0.4-2.0) Height (Feet): 5 Height (Inches): 8.00 Weight (Pounds): 149 Medications Current Medications Medications (Trade) Dose Ordered Sig/Meryl Route PRN Reason Start Time Stop Time Status Last Admin Dose Admin Acetaminophen (Tylenol) 650 mg Q6H PRN ORAL Mild Pain/Temp > 100.5 10/09/17 07:30 11/08/17 07:29 10/09/17 08:14 Dextrose (Dextrose 50%) 25 ml STAT PRN IV Hypoglycemia 10/08/17 23:45 11/07/17 23:44 Dextrose (Dextrose 50%) 50 ml STAT PRN IV Hypoglycemia 10/08/17 23:45 11/07/17 23:44 Dextrose/ Electrolytes 1,000 ml @ 75 mls/hr [id number] IV 10/09/17 11:30 11/08/17 11:29 10/09/17 12:41 Enoxaparin Sodium (Lovenox) 40 mg DAILY SUBQ 10/09/17 09:00 11/08/17 08:59 10/09/17 08:09 Hydromorphone HCl (Dilaudid) 0.5 mg Q4H PRN IVP PAIN 4-10 10/09/17 07:30 10/16/17 07:29 Insulin Aspart (NovoLOG) BEFORE MEALS AND HS SUBQ 10/09/17 06:30 11/08/17 06:29 10/09/17 06:07 Iopamidol (Isovue-300 100ml) 100 ml NOW PRN INJ Radiology Procedure 10/08/17 18:00 10/10/17 17:59 Metoclopramide HCl (Reglan) 5 mg QID ORAL 10/09/17 13:00 11/08/17 12:59 10/09/17 12:40 Metoclopramide HCl (Reglan) 10 mg Q6H PRN IVP Nausea & Vomiting 10/08/17 23:45 11/07/17 23:44 Ondansetron HCl (Zofran) 4 mg Q4H PRN IVP Nausea & Vomiting 10/08/17 23:45 11/07/17 23:44 Pantoprazole (Protonix) 40 mg DAILY IVP 10/09/17 09:00 11/08/17 08:59 10/09/17 08:08 Piperacillin Sod/ Tazobactam Sod 3.375 gm/Sodium Chloride 110 ml @ 27.5 mls/hr Q8H IVPB 10/09/17 02:00 10/16/17 01:59 10/09/17 10:49 Assessment/Plan Problem List: (1) Abdominal pain Assessment & Plan: 72M abdominal pain (epigastric/RUQ) with n/v, low grade fevers, leukocytosis. LFT's normal. CT with distended gb and stomach. pain improving, exam benign. possible gastritis, biliary dyskinesia, acalculous cholecystitis, pancreatitis? -awaiting ultrasound results -trend labs -npo -iv fluids -iv abx. thank you for this consultation. will follow with recs. ICD Codes: R10.9 - Unspecified abdominal pain SNOMED: [id number] Qualifiers: Qualified Codes: R10.13 - Epigastric pain Status: stable JarednanetterubenYina elizabethya Oct 09, 2017 14:32
--- NOTE | 2017-10-09 14:47 | Infectious Diseases Prog Note ---
Assessment/Plan Assessment/Plan Full consult dictated: A) 1) leukocytosis, fevers, tachycardia, sirs, abdominal pain, ? sepsis, ? pancreatitis, ? gs, ? cholecystitis 2) dm, htn, hyperlipidemia 3) allergies - negative 4) fh- + ca and dm, sh-negative, mar noted, notes and records noted 5) d/w RN P) 1) zosyn 2) check US abdomen 3) f/u on labs and blood cultures 4) continue per primary and consultants 5) thank you Subjective Allergies: Coded Allergies: No Known Allergies (Unverified , 12/30/16) Objective Vital Signs Last 24 Hour Vital Signs Date Time Temp Pulse Resp B/P (MAP) Pulse Ox O2 Delivery O2 Flow Rate FiO2 10/09/17 11:55 97.9 88 20 115/66 96 97.9 10/09/17 09:13 100.4 10/09/17 08:14 100.4 10/09/17 08:00 99.3 98 20 118/64 94 99.3 10/09/17 04:00 100.4 109 19 126/66 94 Room Air 100.4 10/09/17 00:00 98.7 94 19 150/82 94 98.7 10/08/17 22:00 97.6 94 16 151/73 98 Room Air 1.0 97.6 10/08/17 21:30 97.6 94 16 151/73 98 Room Air 97.6 10/08/17 20:43 97.6 10/08/17 20:30 98.0 97 16 153/73 98 Nasal Cannula 1.0 98.0 10/08/17 20:13 97.6 10/08/17 19:30 97.5 99 16 153/76 96 Room Air 97.5 10/08/17 18:00 91 16 159/75 99 Room Air 10/08/17 17:28 97.6 90 18 156/86 96 Room Air 97.5 Height (Feet): 5 Height (Inches): 8.00 Weight (Pounds): 149 Laboratory Tests Test 10/08/17 17:54 10/09/17 03:10 10/09/17 06:35 10/09/17 10:35 White Blood Count 9.6 K/UL (4.8-10.8) 17.1 K/UL (4.8-10.8) #H Red Blood Count 5.74 M/UL (4.70-6.10) 5.34 M/UL (4.70-6.10) Hemoglobin 17.5 G/DL (14.2-18.0) 16.1 G/DL (14.2-18.0) Hematocrit 50.8 % (42.0-52.0) 47.1 % (42.0-52.0) Mean Corpuscular Volume 88 FL (80-99) 88 FL (80-99) Mean Corpuscular Hemoglobin 30.5 PG (27.0-31.0) 30.2 PG (27.0-31.0) Mean Corpuscular Hemoglobin Concent 34.4 G/DL (32.0-36.0) 34.2 G/DL (32.0-36.0) Red Cell Distribution Width 11.5 % (11.6-14.8) L 11.6 % (11.6-14.8) Platelet Count 195 K/UL (150-450) 186 K/UL (150-450) Mean Platelet Volume 7.0 FL (6.5-10.1) 7.3 FL (6.5-10.1) Neutrophils (%) (Auto) 69.1 % (45.0-75.0) 84.2 % (45.0-75.0) H Lymphocytes (%) (Auto) 19.7 % (20.0-45.0) L 7.8 % (20.0-45.0) L Monocytes (%) (Auto) 6.1 % (1.0-10.0) 7.6 % (1.0-10.0) Eosinophils (%) (Auto) 4.2 % (0.0-3.0) H 0.0 % (0.0-3.0) Basophils (%) (Auto) 1.0 % (0.0-2.0) 0.4 % (0.0-2.0) Prothrombin Time 10.5 SEC (9.30-11.50) Prothromb Time International Ratio 1.0 (0.9-1.1) Activated Partial Thromboplast Time 30 SEC (23-33) Sodium Level 144 MMOL/L (136-145) 142 MMOL/L (136-145) Potassium Level 3.0 MMOL/L (3.5-5.1) L 3.9 MMOL/L (3.5-5.1) Chloride Level 103 MMOL/L (98-107) 108 MMOL/L (98-107) H Carbon Dioxide Level 31 MMOL/L (21-32) 26 MMOL/L (21-32) Anion Gap 10 mmol/L (5-15) 8 mmol/L (5-15) Blood Urea Nitrogen 17 mg/dL (7-18) 17 mg/dL (7-18) Creatinine 1.3 MG/DL (0.55-1.30) 1.2 MG/DL (0.55-1.30) Estimat Glomerular Filtration Rate 54.6 mL/min (>60) 59.9 mL/min (>60) Glucose Level 135 MG/DL (74-106) H 129 MG/DL (74-106) H Calcium Level 9.6 MG/DL (8.5-10.1) 8.9 MG/DL (8.5-10.1) Total Bilirubin 0.4 MG/DL (0.2-1.0) 0.6 MG/DL (0.2-1.0) Aspartate Amino Transf (AST/SGOT) 20 U/L (15-37) 19 U/L (15-37) Alanine Aminotransferase (ALT/SGPT) 33 U/L (12-78) 30 U/L (12-78) Alkaline Phosphatase 36 U/L (46-116) L 27 U/L (46-116) L Total Creatine Kinase 133 U/L (26-308) Creatine Kinase MB 0.5 NG/ML (0.0-3.6) Creatine Kinase MB Relative Index 0.3 Troponin I 0.001 ng/mL (0.000-0.056) Pro-B-Type Natriuretic Peptide 235 pg/mL (0-125) H Total Protein 8.7 G/DL (6.4-8.2) H 7.0 G/DL (6.4-8.2) Albumin 4.2 G/DL (3.4-5.0) 3.3 G/DL (3.4-5.0) L Globulin 4.5 g/dL 3.7 g/dL Albumin/Globulin Ratio 0.9 (1.0-2.7) L 0.9 (1.0-2.7) L Lipase 488 U/L (73-393) H 273 U/L (73-393) Urine Color Yellow Urine Appearance Clear Urine pH 7 (4.5-8.0) Urine Specific [place] 1.010 (1.005-1.035) Urine Protein 3+ (NEGATIVE) H Urine Glucose (UA) 4+ (NEGATIVE) H Urine Ketones 1+ (NEGATIVE) H Urine Occult Blood Negative (NEGATIVE) Urine Nitrite Negative (NEGATIVE) Urine Bilirubin Negative (NEGATIVE) Urine Urobilinogen Normal MG/DL (0.0-1.0) Urine Leukocyte Esterase Negative (NEGATIVE) Urine RBC 0-2 /HPF (0 - 0) H Urine WBC 2-4 /HPF (0 - 0) Urine Squamous Epithelial Cells Occasional /LPF Urine Transitional Epithelial Cells /LPF (NONE) Urine Amorphous Sediment Few /LPF (NONE) H Urine Bacteria Few /HPF (NONE) Magnesium Level 2.4 MG/DL (1.8-2.4) Direct Bilirubin 0.2 MG/DL (0.0-0.3) Lactic Acid Level 1.60 mmol/L (0.4-2.0) Current Medications Medications (Trade) Dose Ordered Sig/Meryl Route PRN Reason Start Time Stop Time Status Last Admin Dose Admin Acetaminophen (Tylenol) 650 mg Q6H PRN ORAL Mild Pain/Temp > 100.5 10/09/17 07:30 11/08/17 07:29 10/09/17 08:14 Dextrose (Dextrose 50%) 25 ml STAT PRN IV Hypoglycemia 10/08/17 23:45 11/07/17 23:44 Dextrose (Dextrose 50%) 50 ml STAT PRN IV Hypoglycemia 10/08/17 23:45 11/07/17 23:44 Dextrose/ Electrolytes 1,000 ml @ 75 mls/hr [id number] IV 10/09/17 11:30 11/08/17 11:29 10/09/17 12:41 Enoxaparin Sodium (Lovenox) 40 mg DAILY SUBQ 10/09/17 09:00 11/08/17 08:59 10/09/17 08:09 Hydromorphone HCl (Dilaudid) 0.5 mg Q4H PRN IVP PAIN 4-10 10/09/17 07:30 10/16/17 07:29 Insulin Aspart (NovoLOG) BEFORE MEALS AND HS SUBQ 10/09/17 06:30 11/08/17 06:29 10/09/17 06:07 Iopamidol (Isovue-300 100ml) 100 ml NOW PRN INJ Radiology Procedure 10/08/17 18:00 10/10/17 17:59 Metoclopramide HCl (Reglan) 5 mg QID ORAL 10/09/17 13:00 11/08/17 12:59 10/09/17 12:40 Metoclopramide HCl (Reglan) 10 mg Q6H PRN IVP Nausea & Vomiting 10/08/17 23:45 11/07/17 23:44 Ondansetron HCl (Zofran) 4 mg Q4H PRN IVP Nausea & Vomiting 10/08/17 23:45 11/07/17 23:44 Pantoprazole (Protonix) 40 mg DAILY IVP 10/09/17 09:00 11/08/17 08:59 10/09/17 08:08 Piperacillin Sod/ Tazobactam Sod 3.375 gm/Sodium Chloride 110 ml @ 27.5 mls/hr Q8H IVPB 10/09/17 02:00 10/16/17 01:59 10/09/17 10:49 Kusum Robbins MD Oct 09, 2017 14:47
[2017-10-09 16:00] VITALS: BP 130/75
--- NOTE | 2017-10-09 17:30 | Consultation ---
DATE OF CONSULTATION: 10/09/2017 INFECTIOUS DISEASE CONSULTATION CONSULTING PHYSICIAN: Kusum Robbins M.D. ATTENDING PHYSICIAN: No Moore M.D. REFERRING PHYSICIAN: Dr. Vikas MD I was asked by Dr. Bean to see this patient. REASON FOR CONSULTATION: Possible sepsis and cholecystitis. HISTORY OF PRESENT ILLNESS: This is a very pleasant 72-year-old male, who over the last day or so he has had epigastric and back pain. The patient presented to [facility]. It was noted that he had imaging studies of the abdomen and pelvis, gallbladder distention, there was unremarkable appendix. Ultrasound has been ordered of the abdomen. The patient today has had leukocytosis and fevers. Infectious Diseases consultation requested. The patient currently on Zosyn. The patient's blood cultures are pending. Urinalysis was unremarkable for urinary tract infection, 2 to 4 white cells with leukocyte esterase being negative. The patient will be continued on Zosyn, pending workup. The patient also being followed by GI. The patient's temperature as high as 100.4, has been persistent and the patient has white count of over 17,000, it is actually 17.1 to be precise. Of note, the patient also had elevated lipase on admission also. MAR was noted and orders was noted. Notes were reviewed. Case discussed with the patient and discussed with patient the RN. PAST MEDICAL HISTORY: The patient's past medical history includes history of following, the patient has past medical history of hypertension. He has history of diabetes, hypertension, hyperlipidemia, history of hypercholesteremia. MEDICATIONS: Upon reviewing the MAR, he is on the following medications: He is on Reglan. He is on Maxipime, Protonix, Tylenol, Dilaudid, Zosyn. He is on Zofran and intravenous fluids. Outside medications noted and reconciliated. He was on Trulicity, fenofibrate, hydrochlorothiazide, metformin, Bystolic, niacin, Zantac, Lovaza, ranitidine which is Zantac, ramipril, Livalo which is Pitavastatin, calcium, niacin. ALLERGIES: No known drug allergies. No antibiotic allergies. SOCIAL HISTORY: Negative for smoking, alcohol, or drug abuse. FAMILY HISTORY: Positive for cancer and diabetes. REVIEW OF SYSTEMS: CONSTITUTIONAL: He does have fevers, currently no chills. HEAD AND NECK: Denies any thrush, dysphagia, sinus tenderness, change in vision. CARDIAC: No chest pain or palpitations. GASTROINTESTINAL: No nausea, vomiting, or diarrhea. He did have abdominal pain coming in epigastric area. PULMONARY: No cough, hemoptysis, or secretions. SKIN: No rash or itching. EXTREMITIES: No extremity pain. NEUROLOGIC: No seizures. BACK: He has some back pain. No CVA pain. GENITOURINARY: No dysuria, urgency, or frequency PHYSICAL EXAMINATION: VITAL SIGNS: T-max 100.4, pulse rate has been high as 109. Blood pressure is 115/56. Current temperature 97.9, pulse rate 88, respiratory rate 20, blood pressure 115/68, saturation 96%. GENERAL: Awake, alert, and oriented x3, no acute distress. HEAD AND NECK: Exam, no thrush. Eye exam, no icterus. Neck is supple. No JVD. Normocephalic. HEART: Regular. Possible 1/6 systolic flow murmur. ABDOMEN: Soft. Positive bowel sounds. Some discomfort. No rebound. LUNGS: Clear bilaterally. No rhonchi or rales. SKIN: No rash. MUSCULOSKELETAL: No effusions or contractures. Legs are without phlebitis. PERIPHERAL VASCULAR: No evidence of cyanosis. GENITOURINARY: No Ludwig. LINES: Without phlebitis. NEUROLOGIC: Intact. Nonfocal. Alert and oriented x3. LABORATORY DATA: Creatinine 1.2. Lipase on admission is 488. White count 17.1 and hemoglobin 16.1. UA with 3+ protein, 2 to 4 white cells, leukocyte esterase negative. Cultures, blood cultures are pending. CT scan of the abdomen and pelvis showed distended gallbladder, appendix was unremarkable. Ultrasound is pending. ASSESSMENT/PLAN: 1. The patient has leukocytosis, fevers, tachycardia, SIRS criteria, questionable sepsis, questionable cholecystitis, questionable pancreatitis. The patient has distended gallbladder. At this time, I agree with Zosyn for anaerobic and Gram-negative coverage including Enterococcus coverage. Check blood cultures. Followup on ultrasound. Check lipase and labs. Continue Zosyn for possible sepsis including cholecystitis, pending final workup. 2. Diabetes. 3. Hypertension. 4. Hyperlipidemia. 5. Blood sugar and blood pressure treatment per primary. 6. hypercholesteremia 7. Allergies are negative. 8. GI and surgery follow up. 9. Continue treatment per primary consultants. 10. Social history is negative. 11. Family history is positive for cancer and diabetes. 12. Case discussed with the RN 13. MAR was noted. 14. Notes and records were noted. 15. Orders noted. Kusum Robbins M.D. DR: Ingrid JOB#: [id number] CC: SYLVIA
[2017-10-09 19:58] VITALS: BP 133/74
[2017-10-10] VITALS: BP 133/71
[2017-10-10] MEDS: D5 1/2NS w/KCl 20mEq 1,000 ML IV SCH (00:50)
[2017-10-10] MEDS: Zoysn 3.37gm in NS 100ML IVPB SCH ×2 (02:06→11:14)
[2017-10-10 04:00] VITALS: BP 134/72
[2017-10-10 06:19] LABS: BASOPHILS % (AUTO) 0.6 % (0.0-2.0); EOSINOPHILS % (AUTO) 0.4 % (0.0-3.0); HEMATOCRIT 46.2 % (42.0-52.0); HEMOGLOBIN 15.9 G/DL (14.2-18.0); MEAN CORPUSCULAR VOLUME 89 FL (80-99); MONOCYTES % (AUTO) 7.4 % (1.0-10.0); NEUTROPHILS % (AUTO) 81.6 % (45.0-75.0); PLATELET COUNT 161 K/UL (150-450); RED BLOOD COUNT 5.19 M/UL (4.70-6.10); RED CELL DISTRIBUTION WIDTH 11.5 % (11.6-14.8); WHITE BLOOD COUNT 15.7 K/UL (4.8-10.8)
[2017-10-10] MEDS: NovoLOG Insulin Flexpen SUBQ SCH ×2 (06:30→11:30)
[2017-10-10 06:48] LABS: AMYLASE 49 U/L (25-115)
[2017-10-10 06:49] LABS: ALANINE AMINOTRANSFERASE 26 U/L (12-78); ALBUMIN/GLOBULIN RATIO 0.7 (1.0-2.7); ALKALINE PHOSPHATASE 24 U/L (46-116); ANION GAP 15 mmol/L (5-15); ASPARTATE AMINO TRANSFERASE 21 U/L (15-37); BILIRUBIN,TOTAL 1.4 MG/DL (0.2-1.0); BLOOD UREA NITROGEN 20 mg/dL (7-18); CALCIUM 8.4 MG/DL (8.5-10.1); CARBON DIOXIDE 19 MMOL/L (21-32); CHLORIDE 106 MMOL/L (98-107); CHOLESTEROL 120 MG/DL (< 200); CREATININE 1.2 MG/DL (0.55-1.30); HDL CHOLESTEROL 55 MG/DL (40-60); POTASSIUM 3.6 MMOL/L (3.5-5.1); SODIUM 140 MMOL/L (136-145); TRIGLYCERIDES 65 MG/DL (30-150)
[2017-10-10 06:52] LABS: BILIRUBIN,DIRECT 0.4 MG/DL (0.0-0.3)
[2017-10-10 08:15] VITALS: BP 122/66
[2017-10-10] MEDS: Pantoprazole Inj IVP SCH (08:34)
[2017-10-10] MEDS: Enoxaparin 40mg Inj SUBQ SCH (08:41)
--- NOTE | 2017-10-10 09:06 | Anethesia Preoperative Eval ---
Anesthesia Pre-op PMH/ROS General Date of Evaluation: Oct 10, 2017 Time of Evaluation: 09:05 Anesthesiologist: maggie ASA Score: ASA 3 Mallampati Score Class I : Soft palate, uvula, fauces, pillars visible Class II: Soft palate, uvula, fauces visible Class III: Soft palate, base of uvula visible Class IV: Only hard plate visible Surgeon: maria esther Diagnosis: gastroparesis, abdominal pain Surgical Procedure: egd Allergies: Coded Allergies: No Known Allergies (Unverified , 12/30/16) Past Medical History Cardiovascular: Reports: HTN, other - hpercholestrolemia Endocrine: Reports: DM Anesthesia Pre-op Phys. Exam Physician Exam Last Vital Signs Date Time Temp Pulse Resp B/P (MAP) Pulse Ox O2 Delivery O2 Flow Rate FiO2 10/10/17 08:15 96.8 95 20 122/66 98 Room Air 96.8 10/08/17 22:00 1.0 Anesthesia Pre-op A/P Labs Hematology Test 10/10/17 05:40 White Blood Count 15.7 K/UL (4.8-10.8) H Red Blood Count 5.19 M/UL (4.70-6.10) Hemoglobin 15.9 G/DL (14.2-18.0) Hematocrit 46.2 % (42.0-52.0) Mean Corpuscular Volume 89 FL (80-99) Mean Corpuscular Hemoglobin 30.7 PG (27.0-31.0) Mean Corpuscular Hemoglobin Concent 34.5 G/DL (32.0-36.0) Red Cell Distribution Width 11.5 % (11.6-14.8) L Platelet Count 161 K/UL (150-450) Mean Platelet Volume 7.1 FL (6.5-10.1) Neutrophils (%) (Auto) 81.6 % (45.0-75.0) H Lymphocytes (%) (Auto) 10.0 % (20.0-45.0) L Monocytes (%) (Auto) 7.4 % (1.0-10.0) Eosinophils (%) (Auto) 0.4 % (0.0-3.0) Basophils (%) (Auto) 0.6 % (0.0-2.0) Chemistry Test 10/09/17 10:35 6/25/18 05:20 10/10/17 05:40 Lactic Acid Level 1.60 mmol/L (0.4-2.0) Hemoglobin A1c Pending Sodium Level 140 MMOL/L (136-145) Potassium Level 3.6 MMOL/L (3.5-5.1) Chloride Level 106 MMOL/L (98-107) Carbon Dioxide Level 19 MMOL/L (21-32) L Anion Gap 15 mmol/L (5-15) Blood Urea Nitrogen 20 mg/dL (7-18) H Creatinine 1.2 MG/DL (0.55-1.30) Estimat Glomerular Filtration Rate 59.9 mL/min (>60) Glucose Level 83 MG/DL (74-106) Calcium Level 8.4 MG/DL (8.5-10.1) L Total Bilirubin 1.4 MG/DL (0.2-1.0) H Direct Bilirubin 0.4 MG/DL (0.0-0.3) H Aspartate Amino Transf (AST/SGOT) 21 U/L (15-37) Alanine Aminotransferase (ALT/SGPT) 26 U/L (12-78) Alkaline Phosphatase 24 U/L (46-116) L Total Protein 7.1 G/DL (6.4-8.2) Albumin 3.0 G/DL (3.4-5.0) L Globulin 4.1 g/dL Albumin/Globulin Ratio 0.7 (1.0-2.7) L Triglycerides Level 65 MG/DL (30-150) Cholesterol Level 120 MG/DL (< 200) LDL Cholesterol 64 mg/dL (<100) HDL Cholesterol 55 MG/DL (40-60) Cholesterol/HDL Ratio 2.2 (3.3-4.4) L Amylase Level 49 U/L (25-115) Lipase 304 U/L (73-393) Risk Assessment & Plan Assessment: asa3 Plan: mac Pre-Antibiotics Drug: Anastasia Estes MD Oct 10, 2017 09:06
--- NOTE | 2017-10-10 09:09 | Pre-Procedure Note/Attestation ---
Pre-Procedure Note/Attestation Complete Prior to Procedure Planned Procedure: not applicable Procedure Narrative: egd Indications for Procedure Pre-Operative Diagnosis: abd pain Attestation I attest that I discussed the nature of the procedure; its benefits; risks and complications; and alternatives (and the risks and benefits of such alternatives ), prior to the procedure, with the patient (or the patient's legal outreach representative). I attest that, if there was a reasonable possibility of needing a blood transfusion, the patient (or the patient's legal outreach representative) was given the [facility] standardized written summary, pursuant to the Silvestre Jake Blood Safety Act ([place] Health and Safety Code # 1645, as amended). I attest that I re-evaluated the patient just prior to the surgery and that there has been no change in the patient's H&P, except as documented below: Morris Fontana MD Oct 10, 2017 09:09
[2017-10-10] MEDS ORDERED: DiphenhydrAMINE 50mg/ml Inj IVP PRN (09:15)
[2017-10-10] MEDS ORDERED: Atropine Inj 1mg/10ml Syr IV PRN (09:15)
[2017-10-10] MEDS ORDERED: Midazolam 2mg/2ml Inj IVP PRN (09:15)
[2017-10-10] MEDS ORDERED: fentaNYL 100 mcg/2 mL IV PRN (09:15)
--- NOTE | 2017-10-10 09:44 | Diagnostic Imaging Report ---
Indication: Abdominal pain, elevated lipase Technique: Kellogg-scale and duplex images of the upper abdomen were obtained Comparison: Abdomen pelvis CT 10/08/2017 Findings: Gallbladder demonstrates wall thickening/edema. There is sludge in the lumen, but no stones. Sonographic Randall's sign is negative. Common bile duct measures 7 mm in diameter. No intrahepatic biliary ductal dilatation. Liver demonstrates diffusely increased echogenicity, consistent with diffuse hepatocellular disease, most likely fatty change. Portal vein and hepatic veins are patent. Pancreas is unremarkable. Spleen is unremarkable. Left kidney measures 11.7 cm in length. Right kidney measures 10.8 cm length. Both kidneys demonstrate normal echogenicity. There is no hydronephrosis. Cysts are seen in the left kidney . Abdominal aorta is partially obscured by bowel gas, visualized portions are non-aneurysmal . Impression: Liver demonstrates diffusely increased echogenicity, consistent with diffuse hepatocellular disease, most likely fatty change. Gallbladder sludge but no stones Gallbladder wall thickening. This could indicate acalculous acute cholecystitis, acute cholecystitis secondary to occult calculus, reactive edema due to adjacent hepatic inflammation. Correlate with clinical findings, consider hepatobiliary nuclear scan for further evaluation if clinically indicated Mildly dilated common bile duct. Downstream obstruction not excludable. Correlate with liver function tests, consider MRCP if clinically indicated This agrees with the preliminary interpretation provided overnight by [facility] teleradiology service.
[2017-10-10 11:30] VITALS: BP 125/68
--- NOTE | 2017-10-10 12:56 | General Surgery Progress Note ---
General Surgery-Progress Note Subjective Additional Comments no acute events. comfortable. pain improved. US reviewed. Objective Last 24 Hour Vital Signs Date Time Temp Pulse Resp B/P (MAP) Pulse Ox O2 Delivery O2 Flow Rate FiO2 10/10/17 11:30 97.2 96 20 125/68 97 97.2 10/10/17 08:15 96.8 95 20 122/66 98 Room Air 96.8 10/10/17 04:00 99.5 105 20 134/72 94 Room Air 99.5 10/10/17 00:00 99.5 21 133/71 93 Room Air 99.5 10/09/17 19:58 99.0 107 20 133/74 94 Room Air 99.0 10/09/17 16:00 98.2 100 20 130/75 96 98.2 I&O Intake and Output 10/09/17 10/10/17 19:00 07:00 Intake Total 485 ml 635.0 ml Balance 485 ml 635.0 ml Intake IV Total 485 ml 635.0 ml # Voids 3 3 # Bowel Movements 1 Drains: none Cardiovascular: RSR Respiratory: clear Abdomen: soft, flat, non-tender, present bowel sounds Extremities: no edema, no tenderness Laboratory Tests Test 10/10/17 05:20 10/10/17 05:40 Hemoglobin A1c 5.9 % (4.3-6.0) White Blood Count 15.7 K/UL (4.8-10.8) H Red Blood Count 5.19 M/UL (4.70-6.10) Hemoglobin 15.9 G/DL (14.2-18.0) Hematocrit 46.2 % (42.0-52.0) Mean Corpuscular Volume 89 FL (80-99) Mean Corpuscular Hemoglobin 30.7 PG (27.0-31.0) Mean Corpuscular Hemoglobin Concent 34.5 G/DL (32.0-36.0) Red Cell Distribution Width 11.5 % (11.6-14.8) L Platelet Count 161 K/UL (150-450) Mean Platelet Volume 7.1 FL (6.5-10.1) Neutrophils (%) (Auto) 81.6 % (45.0-75.0) H Lymphocytes (%) (Auto) 10.0 % (20.0-45.0) L Monocytes (%) (Auto) 7.4 % (1.0-10.0) Eosinophils (%) (Auto) 0.4 % (0.0-3.0) Basophils (%) (Auto) 0.6 % (0.0-2.0) Sodium Level 140 MMOL/L (136-145) Potassium Level 3.6 MMOL/L (3.5-5.1) Chloride Level 106 MMOL/L (98-107) Carbon Dioxide Level 19 MMOL/L (21-32) L Anion Gap 15 mmol/L (5-15) Blood Urea Nitrogen 20 mg/dL (7-18) H Creatinine 1.2 MG/DL (0.55-1.30) Estimat Glomerular Filtration Rate 59.9 mL/min (>60) Glucose Level 83 MG/DL (74-106) Calcium Level 8.4 MG/DL (8.5-10.1) L Total Bilirubin 1.4 MG/DL (0.2-1.0) H Direct Bilirubin 0.4 MG/DL (0.0-0.3) H Aspartate Amino Transf (AST/SGOT) 21 U/L (15-37) Alanine Aminotransferase (ALT/SGPT) 26 U/L (12-78) Alkaline Phosphatase 24 U/L (46-116) L Total Protein 7.1 G/DL (6.4-8.2) Albumin 3.0 G/DL (3.4-5.0) L Globulin 4.1 g/dL Albumin/Globulin Ratio 0.7 (1.0-2.7) L Triglycerides Level 65 MG/DL (30-150) Cholesterol Level 120 MG/DL (< 200) LDL Cholesterol 64 mg/dL (<100) HDL Cholesterol 55 MG/DL (40-60) Cholesterol/HDL Ratio 2.2 (3.3-4.4) L Amylase Level 49 U/L (25-115) Lipase 304 U/L (73-393) Plan Problems: (1) Abdominal pain Assessment & Plan: 72M abdominal pain (epigastric/RUQ) with n/v, low grade fevers, leukocytosis. LFT's normal. CT with distended gb and stomach. pain improving, exam benign. possible gastritis, biliary dyskinesia, acalculous cholecystitis, pancreatitis? Ultrasound with gb edema, sludge, no stones. concerns for possible acalculous cholecystitis. leukocytosis 14k -trend labs -npo -iv fluids -iv abx. -HIDA today thank you for this consultation. will follow with recs. Kedar Sherwood Oct 10, 2017 12:56
--- NOTE | 2017-10-10 13:10 | GI Progress Note ---
Assessment/Plan Problems: (1) Nausea & vomiting ICD Codes: R11.2 - Nausea with vomiting, unspecified SNOMED: 80932071 (2) DM2 (diabetes mellitus, type 2) ICD Codes: E11.9 - Type 2 diabetes mellitus without complications SNOMED: 58096143 (3) HLD (hyperlipidemia) ICD Codes: E78.5 - Hyperlipidemia, unspecified SNOMED: 28076613 (4) Abdominal pain ICD Codes: R10.9 - Unspecified abdominal pain SNOMED: 04434904 Qualifiers: Qualified Codes: R10.13 - Epigastric pain (5) Gastroparesis ICD Codes: K31.84 - Gastroparesis SNOMED: 812242138 Status: unchanged Status Narrative Discussed with Dr. Fontana. Assessment/Plan EGD cancelled, patient refused >> can be done as outpatient. fu surgical recs cont plan of care fu labs Subjective Gastrointestinal/Abdominal: Reports: abdominal pain Objective Last 24 Hour Vital Signs Date Time Temp Pulse Resp B/P (MAP) Pulse Ox O2 Delivery O2 Flow Rate FiO2 10/10/17 11:30 97.2 96 20 125/68 97 97.2 10/10/17 08:15 96.8 95 20 122/66 98 Room Air 96.8 10/10/17 04:00 99.5 105 20 134/72 94 Room Air 99.5 10/10/17 00:00 99.5 21 133/71 93 Room Air 99.5 10/09/17 19:58 99.0 107 20 133/74 94 Room Air 99.0 10/09/17 16:00 98.2 100 20 130/75 96 98.2 Intake and Output 10/09/17 10/10/17 19:00 07:00 Intake Total 485 ml 635.0 ml Balance 485 ml 635.0 ml Intake IV Total 485 ml 635.0 ml # Voids 3 3 # Bowel Movements 1 Laboratory Tests Test 10/10/17 05:20 10/10/17 05:40 Hemoglobin A1c 5.9 % (4.3-6.0) White Blood Count 15.7 K/UL (4.8-10.8) H Red Blood Count 5.19 M/UL (4.70-6.10) Hemoglobin 15.9 G/DL (14.2-18.0) Hematocrit 46.2 % (42.0-52.0) Mean Corpuscular Volume 89 FL (80-99) Mean Corpuscular Hemoglobin 30.7 PG (27.0-31.0) Mean Corpuscular Hemoglobin Concent 34.5 G/DL (32.0-36.0) Red Cell Distribution Width 11.5 % (11.6-14.8) L Platelet Count 161 K/UL (150-450) Mean Platelet Volume 7.1 FL (6.5-10.1) Neutrophils (%) (Auto) 81.6 % (45.0-75.0) H Lymphocytes (%) (Auto) 10.0 % (20.0-45.0) L Monocytes (%) (Auto) 7.4 % (1.0-10.0) Eosinophils (%) (Auto) 0.4 % (0.0-3.0) Basophils (%) (Auto) 0.6 % (0.0-2.0) Sodium Level 140 MMOL/L (136-145) Potassium Level 3.6 MMOL/L (3.5-5.1) Chloride Level 106 MMOL/L (98-107) Carbon Dioxide Level 19 MMOL/L (21-32) L Anion Gap 15 mmol/L (5-15) Blood Urea Nitrogen 20 mg/dL (7-18) H Creatinine 1.2 MG/DL (0.55-1.30) Estimat Glomerular Filtration Rate 59.9 mL/min (>60) Glucose Level 83 MG/DL (74-106) Calcium Level 8.4 MG/DL (8.5-10.1) L Total Bilirubin 1.4 MG/DL (0.2-1.0) H Direct Bilirubin 0.4 MG/DL (0.0-0.3) H Aspartate Amino Transf (AST/SGOT) 21 U/L (15-37) Alanine Aminotransferase (ALT/SGPT) 26 U/L (12-78) Alkaline Phosphatase 24 U/L (46-116) L Total Protein 7.1 G/DL (6.4-8.2) Albumin 3.0 G/DL (3.4-5.0) L Globulin 4.1 g/dL Albumin/Globulin Ratio 0.7 (1.0-2.7) L Triglycerides Level 65 MG/DL (30-150) Cholesterol Level 120 MG/DL (< 200) LDL Cholesterol 64 mg/dL (<100) HDL Cholesterol 55 MG/DL (40-60) Cholesterol/HDL Ratio 2.2 (3.3-4.4) L Amylase Level 49 U/L (25-115) Lipase 304 U/L (73-393) Height (Feet): 5 Height (Inches): 8.00 Weight (Pounds): 149 General Appearance: WD/WN, no apparent distress, alert Cardiovascular: normal rate Respiratory/Chest: normal breath sounds, no respiratory distress Abdominal Exam: normal bowel sounds, non tender, soft Extremities: normal range of motion, non-tender Shalonda Ortiz NP Oct 10, 2017 13:10
[2017-10-10] MEDS ORDERED: METRONIDAZOLE500 MG ORAL (13:31)
[2017-10-10] MEDS ORDERED: LEVAQUIN750 MG ORAL (13:31)
--- NOTE | 2017-10-10 14:01 | Discharge Summary ---
Discharge Summary Hospital Course Date of Admission Oct 08, 2017 at 20:07 Date of Discharge October 10, 2017 Admitting Diagnosis gastroparesis, abdominal pain HPI Francis Freeman is a 72 year old male who was admitted on Oct 08, 2017 at 20:07 for Gastroparesis,Abdominal Pain 72yo male with pmh of HTN, DM2, HLD who presents with abd pain. Pt states abd pain started yesterday. He describes epigastric RUQ abd pain described as cramping 8/10 w/ some radiation to mid back associated with bloating, nausea and emesis. Pt states had a tuna sandwich earlier that day which was left over from day prior. It had been refrigerated. No hematemesis. Has never had this before. Denies f/c, chest pain, SOB, d/c, cough. Has a normal BM yesterday. No trauma or recent travel. In ED, pt had CT a/p which showed gastric distention and gallbladder distention. Pt given IVFs, pain and nausea meds. Overnight pt had fever to 100.4 and WBC elevated to 17K. Pt notes improvement in abd pain. Consultations GI, general surgery, ID Procedures none Hospital Course Patient was admitted and stated on IV zosyn given low grade temp and leukocytosis. ID was consulted. Patient's WBC downtrended and fevers resolved. GI and general surgery were consulted given CT a/p findings showing gastric distention and gallbladder distention. Abdominal ultrasound was ordered, which showed gallbladder sludge with possible acalchulous acute cholecystitis. HIDA was recommended but patient refused cholecystectomy or further diagnostic tests. Patient stated that he would follow up with his PCP, Dr. Salvador, tomorrow. This was confirmed with Dr. Salvador. Given patient's abdominal exam was unremarkable, WBC was downtrending, fevers were resolved, and patient was tolerating regular diet with no nausea or vomiting, patient was hemodynamically stable for discharge to home and was advised to follow up with PCP and general surgery. Patient was given prescriptions for 1 week course of antibiotics with levaquin and flagyl. Discharge Medications New Medications: Levofloxacin* (Levaquin*) 750 Mg Tablet 750 MG ORAL DAILY for 7 Days, #7 TAB Metronidazole* (Flagyl*) 500 Mg Tablet 500 MG ORAL EVERY 8 HOURS for 7 Days, #21 TAB Continued Medications: Dulaglutide (Trulicity) 0.75 Mg/0.5 Ml Pen.injctr 0.75 MG SQ QWEEK, EA Fenofibric Acid (Fenofibric Acid) 105 Mg Tablet 135 MG PO DAILY, TAB (This prescription has been renewed) Hydrochlorothiazide* (Hydrochlorothiazide*) 25 Mg Tablet 25 MG ORAL DAILY, TAB (This prescription has been renewed) [jardiance] () 25 MG PO DAILY (This prescription has been renewed) [lovaza] () 1 GM PO BID (This prescription has been renewed) Metformin Hcl* (Metformin Hcl*) 1,000 Mg Tablet 1000 MG ORAL BID, TAB (This prescription has been renewed) Mometasone Furoate (Nasonex) 17 Gm [place].pump 2 SPRAYS NASAL DAILY, GM 0 Refills (This prescription has been renewed) Nebivolol Hcl* (Bystolic*) 2.5 Mg Tablet 5 MG ORAL DAILY, TAB (This prescription has been renewed) Niaciner* (Niacin Er*) 750 Mg Tablet.er 500 MG ORAL BEDTIME, #14 CAP 0 Refills (This prescription has been renewed) Pitavastatin Calcium (Livalo) 4 Mg Tablet 4 MG PO BEDTIME, TAB (This prescription has been renewed) Ramipril* (Ramipril*) 5 Mg Capsule 10 MG ORAL DAILY, #30 CAP 0 Refills Ranitidine Hcl* (Zantac*) 150 Mg Tablet 150 MG ORAL DAILY PRN for nausea, TAB Discharge Condition Upon Discharge: improving, stable Discharge Disposition Patient was discharged to home Discharge Diagnoses: (1) Gallbladder sludge (2) Gastroparesis (3) Abdominal pain (4) HTN (hypertension) (5) HLD (hyperlipidemia) (6) DM2 (diabetes mellitus, type 2) (7) lives on own with dog (8) Nausea & vomiting (9) Hypokalemia (10) SIRS (systemic inflammatory response syndrome) Nichole Cramer NP Oct 10, 2017 14:01
== END 2017-10-10 14:00 | disposition home or self-care (01) | DRG 74 ==
LOC: EMR 18:00 → 4W 20:07 → EDBEDREQ 20:24
DX: E11.43 Type 2 diabetes mellitus with diabetic autonomic (poly)neuropathy (principal); R65.10 Systemic inflammatory response syndrome (SIRS) of non-infectious origin without acute organ dysfunction; K31.84 Gastroparesis; K82.8 Other specified diseases of gallbladder; I10 Essential (primary) hypertension; E78.5 Hyperlipidemia, unspecified; E87.6 Hypokalemia
CPT/HCPCS: 36415; 71045; 74177; 76700; 80053; 80061; 81001; 82150; 82248; 82550; 82553; 82962; 83036; 83605; 83690; 83735; 83880; 84484; 85025; 85610; 85730; 87040; 93005; 99285; J1815; J2405; J8499